=== PATIENT | female | born 1980 | race African-American/Black ===

== ENCOUNTER 2023-09-17 09:45 | Emergency (ER) | payer MEDICAID ==
[~2023-09-17] VITALS: Ht 175.3 cm; Wt 72.6 kg
[2023-09-17 09:56] VITALS: O2SAT 99
[2023-09-17] MEDS ORDERED: AMLO10TA80 MT (10:27)
[2023-09-17 10:56] VITALS: BP 147/90; PULSE 65; RESP 16; TEMP 98.4
== END 2023-09-17 10:56 | disposition home or self-care (01) ==
LOC: ER 09:45
DX: I10 Essential (primary) hypertension (principal); Z76.0 Encounter for issue of repeat prescription; Z98.890 Other specified postprocedural states
CPT/HCPCS: 99281